=== PATIENT | female | born 1950 | race Caucasian/White ===

== ENCOUNTER 2024-03-22 17:02 | Emergency (ER) | payer MEDICARE, MEDICAID, SELFPAY ==
[2024-03-22] VITALS (8 sets, daily range): BP systolic 182–222; BP diastolic 88–99; PULSE 86–115; RESP 16–33; TEMP 36.7–37.4; O2SAT 92–96; BMI 32.5
--- NOTE | ~2024-03-22 | CT_ITS ---
EXAMINATION: CT ANGIOGRAM HEAD AND NECK WITHOUT AND WITH CONTRAST CLINICAL INFORMATION: RIGHT EYE VISION LOSS FOR DAYS. ELEVATED BLOOD PRESSURE. COMPARISON: NONE TECHNIQUE: CONTIGUOUS AXIAL CT IMAGES WERE OBTAINED FROM THE AORTIC ARCH TO THE VERTEX OF THE HEAD FOLLOWING THE ADMINISTRATION OF 70 ML OF OMNIPAQUE 350 INTRAVENOUS CONTRAST. THE DATA WAS TRANSFERRED TO AN INDEPENDENT WORKSTATION, WHERE 3-D RECONSTRUCTIONS WERE PERFORMED. PRE-AND POSTCONTRAST HEAD CTS WERE ALSO PERFORMED. THE DEGREE OF STENOSIS DETERMINED BY NASCET CRITERIA. THIS CT EXAMINATION WAS PERFORMED USING DOSE OPTIMIZATION TECHNIQUES APPROPRIATE, VARIOUSLY INCLUDING THE FOLLOWING: *AUTOMATED EXPOSURE CONTROL *ADJUSTMENT OF MA AND/OR KV ACCORDING TO PATIENT SIZE (THIS INCLUDES TECHNIQUES OR STANDARDIZED PROTOCOLS FOR TARGETED EXAMS WHERE DOSE IS MATCHED TO INDICATION/REASON FOR EXAM; I.E. EXTREMITIES OR HEAD) *USE OF ITERATIVE RECONSTRUCTION TECHNIQUE DLP: 2196 MGY-CM INTERPRETATION OF FILMS: HEAD CT: There is no intracranial hemorrhage. No evidence of acute/subacute cerebral or cerebellar infarction. There is mild to moderate microvascular ischemic change. There is a chronic lacunar infarction within the posterior right hernandez radiata. There is a chronic lacunar infarction within the left caudate head. There are chronic lacunar infarctions within the basal ganglia bilaterally. No extra-axial fluid collection, mass effect, or midline shift. The ventricles are normal in size and configuration. There is no pathologic enhancement following the intravenous administration of contrast. The orbits are symmetric and within normal limits. There is trace mucosal thickening within the posterior inferior left maxillary sinus. Mastoid air cells are clear. NECK CTA: The visualized aorta is normal in caliber. The origins of the common carotid and vertebral arteries are widely patent. The subclavian arteries are widely patent. The right common carotid artery and cervical bifurcation are normal in caliber. There is minimal calcific atherosclerotic disease at the level of the cervical bifurcation. The cervical segment of the right internal carotid demonstrates smooth luminal margins and is normal in caliber. The left common carotid artery and cervical bifurcation are normal in caliber. There is a minimal calcific atherosclerotic disease at the level of the cervical bifurcation. The cervical segment of the left internal carotid demonstrates smooth luminal margins and is normal in caliber. The right vertebral artery is patent and has a normal course through the cervical region. The left vertebral artery is patent and has a normal course through the cervical region. HEAD CTA: The intracranial right internal carotid artery is normal in caliber. There is an inferiorly projecting 1.8 mm excrescence arising from the communicating segment likely representing a posterior communicating artery infundibulum. The right anterior and middle cerebral arteries are normal in appearance without significant stenosis or major branch vessel occlusion. The intracranial left internal carotid artery is normal in caliber. The left anterior and middle cerebral arteries are normal in appearance without significant stenosis or major branch vessel occlusion. The anterior communicating artery is unremarkable. The intradural vertebral arteries are widely patent and communicate normally with the basilar trunk. The basilar artery and posterior cerebral artery vasculature is normal in appearance. No intracranial aneurysm. No evidence of high flow vascular malformation. OTHER: Lung apices are clear. The thyroid gland contains multiple low attenuation nodules, the largest measuring 1.2 cm in diameter. Further evaluation with thyroid ultrasound is recommended. There is mild to moderate cervical spondylosis. SUMMARY: No acute intracranial abnormality. There is mild to moderate microvascular ischemic change. There is a chronic lacunar infarction within the posterior right hernandez radiata. There is a chronic lacunar infarction within the left caudate head. There are chronic lacunar infarctions within the basal ganglia bilaterally. There is mild calcific atherosclerotic disease at the level of the common carotid artery bifurcations bilaterally. There is no significant internal carotid artery stenosis on either side. No intracranial large vessel occlusion. Electronically signed by: Russell Man DO 03/22/2024 10:58 PM EDT
--- NOTE | 2024-03-22 17:05 | ED_ITS ---
HPI - General Adult General Chief complaint: Eye Problems Stated complaint: no vision in right eye Time Seen by Provider: 03/22/24 17:12 Source: patient and family Mode of arrival: ambulatory Limitations: no limitations History of Present Illness ED Provider: Dr. Mirna Nunes HPI narrative: Patient comes to emergency room accompanied by her family. According to the patient, approximately 8 days ago, patient states that she was on the phone and suddenly noticed that ?the phone was not working . Patient states that the screen looked weird, dark, could not quite focus on the screen. Then, patient noted that if she closed her right eye and looked from the left, the vision was normal. However, she could not see anything out of the right eye. Patient states that she could not only see black out of the eye on the right. Patient states that she has had strokes in the past, last stroke was in 2006 for which she has left-sided residual weakness in upper and lower extremity. Patient states that this time, she did not have any other neurological deficits other than the vision loss in the right eye. Patient went to see today her inside sales director, [facility] with Dr. Shantel Wilkinson. 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 Patient has history of cataract surgery. Recommendation: Come to the emergency room for further evaluation. Outpatient treatment intravitreal anti VEGF injections (Avastin) On arrival, it was noted that patient's blood pressure is 214/98, patient states that she is compliant with her medications, takes amlodipine 10 mg, chlorthalidone 25 mg and lisinopril 40 mg. Patient denies headache, chest pain or shortness of breath Related Data Home Medications ?Medication ?Instructions ?Recorded ?Confirmed amlodipine 10 mg tablet 10 mg PO DAILY 03/22/24 03/22/24 aspirin 81 mg tablet,delayed 81 mg PO DAILY 03/22/24 03/22/24 release chlorthalidone 25 mg tablet 25 mg PO DAILY 03/22/24 03/22/24 lisinopril 40 mg tablet 40 mg PO DAILY 03/22/24 03/22/24 Previous Rx's ?Medication ?Instructions ?Recorded aspirin 81 mg tablet,delayed 81 mg PO DAILY #90 tabs 03/23/24 release atorvastatin 80 mg tablet 80 mg PO DAILY #90 tabs 03/23/24 Allergies Allergy/AdvReac Type Severity Reaction Status Date / Time No Known Allergies Allergy Verified 03/22/24 17:07 [No Known Allergies*] Review of Systems 2 Review of Systems: Constitutional : No Weight loss, No Fever, No Chills, No Night Sweats, No Fatigue, No Malaise ENT/Mouth : No Hearing loss, No Ear Pain, No Nasal Congestion, No Sinus Pain, No Hoarseness, No sore throat, No Rhinorrhea, No Swallowing Difficulty Eyes: No Eye Pain, No Swelling, No Redness, No Foreign Body, No Discharge, complaining of vision loss in the right eye for 8 days Cardiovascular : No Chest Pain, No SOB, No Dyspnea on Exertion, No Orthopnea, No Edema, No Palpitations Respiratory : No Cough, No Sputum, No Wheezing, No Smoke Exposure, No Dyspnea Gastrointestinal : No Nausea, No Vomiting, No Diarrhea, No Constipation, No abdominal Pain, No Hematochezia, No Melena Genitourinary : no irregular bleeding, No Dysuria, No Urinary Frequency, No Hematuria, No Urinary Incontinence, No Urgency, No Flank Pain, No Urinary Flow Changes, No Hesitancy Musculoskeletal : No joint pain, No Myalgias, No Joint Swelling Skin : No Skin Lesions, No rash Neuro : No Weakness, No Numbness, No Paresthesias, No Loss of Consciousness, No Dizziness, No Headache Psych : No Anxiety/Panic, No Depression, No SI/HI/AH/VH, No Social Issues, Heme/Lymph: No Bruising, No Bleeding,No Lymphadenopathy Endocrine : No Polyuria, No Polydipsia, No Temperature Intolerance [facility] Past Medical History Medical History (Updated 03/22/24 @ 23:27 by Mirna Nunes MD) Hyperlipidemia CVA (cerebral vascular accident) Hypertension Social History Social History Smoked in Last 30 Days: No Use of substances other than those prescribed or required for medical reasons: No Advance Directives: No Advance Directives Information Provided: Yes Do you have a plan to hurt others: No Plan Physical Exam ED Vital Signs: Vital Signs - 24 hr 03/22/24 17:06 03/22/24 18:18 03/22/24 18:47 Temperature 98.1 F Pulse Rate 115 H 108 H Respiratory Rate 18 18 Blood Pressure 214/98 H 222/99 H 201/95 H Pulse Oximetry 96 94 Oxygen Delivery Method Room Air Room Air 03/22/24 18:49 03/22/24 18:49 03/22/24 19:58 Temperature Pulse Rate 86 Respiratory Rate 16 Blood Pressure 201/95 H 201/95 H 182/88 H Pulse Oximetry 96 Oxygen Delivery Method Room Air 03/22/24 20:50 03/22/24 22:00 03/22/24 23:26 Temperature 99.1 F 99.3 F Pulse Rate 92 96 97 Respiratory Rate 22 H 33 H Blood Pressure 191/93 H 192/94 H 192/88 H Pulse Oximetry 94 92 Oxygen Delivery Method Room Air Room Air BMI result Body Mass Index 32.5 Const Other: Appearance: Alert. Oriented X3. No acute distress. Eyes: Nonreactive pupil on the right side. Patient states that if she covers her right eye, the vision in the left eye is a normal limits. However, if she covers her left eye and looks out of the right, states that she can see some collar in the peripheral aspects of the vision but has a large central area of seeing completely dark ENT: Pharynx normal. Neck: Normal inspection. Neck supple. No lymph nodes noted. No crepitus CVS: Normal heart rate and rhythm. Pulses normal. Normal S1 and S2 Respiratory: No respiratory distress. Breath sounds normal. No Wheezing. No rales Abdomen: Soft and nontender. No rigidity. No distention. Skin: Skin warm and dry. Normal skin color. Normal skin turgor. Extremities: No lower extremity edema. No Lacerations. No Rash Neuro: Oriented X 3. No motor deficit. No sensory deficit. Moving all extremities. No slurred speech. CN 2 through 12 grossly intact Psych: calm, cooperative, normal affect Course Course Course Narrative: This is a rapid medical exam performed by Layne Gutiérrez NP: Additional HPI, ROS, PE not included below will be deferred to primary provider. Patient is a 73-year-old female with history of cataract surgery 1 year, labs ago presenting from inside sales director's office with complaint of no vision in right eye for a few days. Family took her to inside sales director who performed an exam, told family that patient had evidence of central retinal artery occlusion OD as well as OLD branch retinal vein occlusion with macular edema OS and referred to the ED. Patient hypertensive in triage. Patient denies headache. Plan: CT head Medications Administered Discontinued Medications Generic Name Dose Route Start Last Admin Trade Name Freq PRN Reason Stop Dose Admin Amlodipine Besylate 10 mg 03/22/24 18:35 03/22/24 18:49 Amlodipine Besylate 10 Mg Tablet PO 03/22/24 18:36 10 mg ONCE ONE Administration Protocol Hydrochlorothiazide 25 mg 03/22/24 18:35 03/22/24 18:47 Hydrochlorothiazide 25 Mg Tablet PO 03/22/24 18:36 25 mg ONCE ONE Administration Protocol Iohexol 100 ml 03/22/24 18:18 03/22/24 18:19 Iohexol 350 Mg/Ml 100 Ml Infus..Btl IV 03/22/24 18:19 70 ml ONCE ONE Administration Labetalol HCl 100 mg 03/22/24 23:20 03/22/24 23:26 Labetalol Hcl 100 Mg Tablet PO 03/22/24 23:21 100 mg ONCE ONE Administration Protocol Lisinopril 40 mg 03/22/24 18:35 03/22/24 18:49 Lisinopril 40 Mg Tablet PO 03/22/24 18:36 40 mg ONCE ONE Administration Protocol Potassium Chloride 40 meq 03/22/24 23:16 03/22/24 23:26 Potassium Chloride Packet 20 Meq Packet PO 03/22/24 23:17 40 meq ONCE ONE Administration Medical Decision Making Medical Decision Making MDM Narrative: Unfortunately, patient is outside of the window of treatment for CVA. Patient has been symptomatic for [address] and CTA pending. -patient's blood pressure remains above 200 systolic, last blood pressure check 222/99. Patient admits that she did not take her blood pressure medications despite earlier today saying that she did. Patient was given the 1st dose of hydrochlorothiazide 25 mg (we do not have chlorthalidone available), amlodipine 10 mg and lisinopril 40 mg. -patient's blood pressure in the 190s, patient remains asymptomatic other than the vision loss that started 8 days ago. -patient was given p.o. labetalol 100 mg. -head CT/CTA of head and neck show old lacunar strokes. -I discussed the patient with Dr. Reis from the Medicine team, at this time, no need for admission. All of patient's changes are chronic. The inpatient team would not be doing anything different at this time. -the Patient will be going home with aspirin which she is already taking and atorvastatin -patient's blood pressure 172 systolic after 100 mg p.o. labetalol. Patient has no changes. Differential Diagnosis Differential Diagnoses: The differential diagnosis associated with the presentation includes (TIA, CVA, retina detachment, retinal occlusion) Admission/Observation Consideration of admission/observation: Escalation of care including admission/observation considered (Admission was considered, discussed with our hospitalist Dr. Quispe) Consult Healthcare Provider Management of the patient was discussed with: Hospitalist Lab Data MDM Lab Attestation statement: I reviewed the patient's lab results. 03/22/24 17:20 03/22/24 17:20 Labs: Lab Results 03/22/24 Range/Units 17:20 WBC 8.4 (4.8-10.8) X10*3/uL RBC 4.85 (4.20-5.50) X10*6/uL Hgb 13.7 (12.0-16.0) g/dl Hct 41.1 (37.0-47.0) % MCV 84.7 (80.0-98.0) fL MCH 28.2 (27.0-33.0) pg MCHC 33.3 (31.0-35.0) g/dl RDW 12.9 (11.0-16.0) % Plt Count 266 (160-400) X10*3/uL MPV 11.5 (9.4-12.3) fL Immature Gran % (Auto) 0.2 (0.0-0.4) % Neut % (Auto) 69.9 (45-73) % Lymph % (Auto) 22.6 (20-40) % Haines % (Auto) 5.4 (2-11) % Eos % (Auto) 1.4 (0-4) % Baso % (Auto) 0.5 (0-2) % Lymph # (Auto) 1.9 (1.2-4.9) X10*3/uL Haines # (Auto) 0.5 (0.1-1.2) X10*3/uL Eos # (Auto) 0.1 (0.0-0.4) X10*3/uL Baso # (Auto) 0.0 (0.0-0.2) X10*3/uL Abs Immat Gran (auto) 0.02 (0.00-0.03) X10*3/uL Absolute Neuts (auto) 5.9 (2.0-8.3) x10*3/uL Absolute Nucleated RBC 0.000 (0.0-0.012) X10*3/uL Nucleated RBC % (auto) 0.0 (0.0-0.2) /100WBC PT 11.5 (10.9-12.4) SEC INR 1.0 (0.9-1.1) Sodium 143 (135-145) mmol/L Potassium 3.1 L (3.3-5.1) mmol/L Chloride 109 H (96-108) mmol/L Carbon Dioxide 24 (22-29) mmol/L Anion Gap 13 (12-20) BUN 13 (9-16) mg/dL Creatinine 0.79 (0.5-1.4) mg/dL Estim Creat Clear Calc 63.2 Estimated GFR > 60 Random Glucose 149 H (60-115) mg/dL Calcium 9.7 (8.4-10.2) mg/dL Total Bilirubin 0.4 (0.0-1.0) mg/dL AST 37 H (5-31) U/L ALT 36 H (0-31) U/L Alkaline Phosphatase 120 H (39-117) U/L Total Protein 7.5 (6.5-8.0) g/dL Albumin 4.3 (3.5-5.0) g/dL Independent Interpretation I performed an independent interpretation of an: CT Scan Radiology Impression Discussion of test interpretation with radiology: I have reviewed the radiologist's reading. Radiologist Impression: HEAD CT: There is no intracranial hemorrhage. No evidence of acute/subacute cerebral or cerebellar infarction. There is mild to moderate microvascular ischemic change. There is a chronic lacunar infarction within the posterior right hernandez radiata. There is a chronic lacunar infarction within the left caudate head. There are chronic lacunar infarctions within the basal ganglia bilaterally. No extra-axial fluid collection, mass effect, or midline shift. The ventricles are normal in size and configuration. There is no pathologic enhancement following the intravenous administration of contrast. The orbits are symmetric and within normal limits. There is trace mucosal thickening within the posterior inferior left maxillary sinus. Mastoid air cells are clear. NECK CTA: The visualized aorta is normal in caliber. The origins of the common carotid and vertebral arteries are widely patent. The subclavian arteries are widely patent. The right common carotid artery and cervical bifurcation are normal in caliber. There is minimal calcific atherosclerotic disease at the level of the cervical bifurcation. The cervical segment of the right internal carotid demonstrates smooth luminal margins and is normal in caliber. The left common carotid artery and cervical bifurcation are normal in caliber. There is a minimal calcific atherosclerotic disease at the level of the cervical bifurcation. The cervical segment of the left internal carotid demonstrates smooth luminal margins and is normal in caliber. The right vertebral artery is patent and has a normal course through the cervical region. The left vertebral artery is patent and has a normal course through the cervical region. HEAD CTA: The intracranial right internal carotid artery is normal in caliber. There is an inferiorly projecting 1.8 mm excrescence arising from the communicating segment likely representing a posterior communicating artery infundibulum. The right anterior and middle cerebral arteries are normal in appearance without significant stenosis or major branch vessel occlusion. The intracranial left internal carotid artery is normal in caliber. The left anterior and middle cerebral arteries are normal in appearance without significant stenosis or major branch vessel occlusion. The anterior communicating artery is unremarkable. The intradural vertebral arteries are widely patent and communicate normally with the basilar trunk. The basilar artery and posterior cerebral artery vasculature is normal in appearance. No intracranial aneurysm. No evidence of high flow vascular malformation. OTHER: Lung apices are clear. The thyroid gland contains multiple low attenuation nodules, the largest measuring 1.2 cm in diameter. Further evaluation with thyroid ultrasound is recommended. There is mild to moderate cervical spondylosis. SUMMARY: No acute intracranial abnormality. There is mild to moderate microvascular ischemic change. There is a chronic lacunar infarction within the posterior right hernandez radiata. There is a chronic lacunar infarction within the left caudate head. There are chronic lacunar infarctions within the basal ganglia bilaterally. There is mild calcific atherosclerotic disease at the level of the common carotid artery bifurcations bilaterally. There is no significant internal carotid artery stenosis on either side. No intracranial large vessel occlusion. Critical Care Time Critical Care Time Critical Care Time: Yes Total Critical Care Time: 60 Attestation: I have personally provided critical care time. Time includes review of lab data, radiology results, discussion with consultants, and monitoring for potential decompensation. Intervention performed as documented. Discharge Plan Discharge Clinical Impression: Hypertension, Retinal vascular occlusion Patient Disposition: Home, Self-Care Instructions: Chronic Hypertension (ED), Self Care Measures After a Stroke (ED) Additional Instructions: Please follow-up with your primary care physician tomorrow. If you have any worsening or new symptoms, please return to the emergency room or call 911 Prescriptions: New aspirin 81 mg tablet,delayed release (DR/EC) 81 mg PO DAILY Qty: 90 1RF atorvastatin 80 mg tablet 80 mg PO DAILY Qty: 90 1RF No Action chlorthalidone 25 mg tablet 25 mg PO DAILY aspirin 81 mg tablet,delayed release (DR/EC) 81 mg PO DAILY amlodipine 10 mg tablet 10 mg PO DAILY lisinopril 40 mg tablet 40 mg PO DAILY Print Language: Ug[place]an
[2024-03-22 17:27] LABS: MANUAL DIFF FLAG NO
[2024-03-22 17:31] LABS: Basophils Percent Auto 0.5 % (0-2); Eosinophils Absolute Auto 0.1 X10*3/uL (0.0-0.4); Eosinophils Percent Auto 1.4 % (0-4); Hematocrit 41.1 % (37.0-47.0); Hemoglobin 13.7 g/dl (12.0-16.0); Imm Gran Abs Auto 0.02 X10*3/uL (0.00-0.03); Imm Gran Pct Auto 0.2 % (0.0-0.4); Lymphocytes Absolute Auto 1.9 X10*3/uL (1.2-4.9); Lymphocytes Percent Auto 22.6 % (20-40); Mean Corpuscular HGB Conc 33.3 g/dl (31.0-35.0); Mean Corpuscular Hemoglobin 28.2 pg (27.0-33.0); Mean Corpuscular Volume 84.7 fL (80.0-98.0); Mean Platelet Volume 11.5 fL (9.4-12.3); Monocytes Absolute Auto 0.5 X10*3/uL (0.1-1.2); Monocytes Percent Auto 5.4 % (2-11); Neutrophils Absolute Auto 5.9 x10*3/uL (2.0-8.3); Neutrophils Percent Auto 69.9 % (45-73); Platelet Count 266 X10*3/uL (160-400); Red Blood Count 4.85 X10*6/uL (4.20-5.50); Red Cell Distribution Width 12.9 % (11.0-16.0); White Blood Count 8.4 X10*3/uL (4.8-10.8)
--- NOTE | 2024-03-22 17:35 | PC.NURSE ---
pt a&ox4, hypertensive, sinus tach on monitor, 20G PIV placed left AC, labs obtained, provider at bedside. pt reports vision loss in R eye starting 03/14/24, initially had dark limited vision with improvement over the last week, pt denies headaches, neuro otherwise intact. pt went to ophthalmology appt regarding vision changes and was noted to have retinal artery occlusion per overcoiler and advised to come to the ED. pt pending labs/CT scans. no new orders at this time.
[2024-03-22 17:43] LABS: Prothrombin Time 11.5 SEC (10.9-12.4)
[2024-03-22 17:44] LABS: Alanine Aminotransferase 36 U/L (0-31); Albumin Level 4.3 g/dL (3.5-5.0); Alkaline Phosphatase 120 U/L (39-117); Anion Gap 13 (12-20); Aspartate Amino Transferase 37 U/L (5-31); Bilirubin Total 0.4 mg/dL (0.0-1.0); Blood Urea Nitrogen 13 mg/dL (9-16); Calcium 9.7 mg/dL (8.4-10.2); Carbon Dioxide 24 mmol/L (22-29); Chloride 109 mmol/L (96-108); Creatinine Clr Calc Pharmacy 63.2; Estimated Glomerular Filt Rate > 60; Glucose Random 149 mg/dL (60-115); Potassium 3.1 mmol/L (3.3-5.1); Sodium 143 mmol/L (135-145); Total Protein 7.5 g/dL (6.5-8.0)
--- NOTE | 2024-03-22 18:02 | ECG_ITS ---
Test Reason : RHYTHM CHECK Blood Pressure : / mmHG Vent. Rate : 104 BPM Atrial Rate : 104 BPM P-R Int : 174 ms QRS Dur : 074 ms QT Int : 352 ms P-R-T Axes : 023 010 038 degrees QTc Int : 462 ms Sinus tachycardia Minimal voltage criteria for LVH, may be normal variant ( R in aVL ) Nonspecific T wave abnormality Abnormal ECG No previous ECGs available Referred By: Mirna Nunes Electronically Signed By:RACHNA GOTTLIEB
[2024-03-22] MEDS: iohexoL 350 MG/ML 100 ML INFUS..BTL IV (18:19)
[2024-03-22] MEDS: hydroCHLOROthiazide 25 MG TABLET PO (18:47)
[2024-03-22] MEDS: amLODIPine Besylate 10 MG TABLET PO (18:49)
[2024-03-22] MEDS: lisinopriL 40 MG TABLET PO (18:49)
[2024-03-22] MEDS: Potassium Chloride Packet 20 MEQ PACKET 40 MEQ PO (23:26)
[2024-03-22] MEDS: Labetalol HCL 100 MG TABLET PO (23:26)
--- NOTE | 2024-03-22 23:28 | PC.NURSE ---
pt medicated per mar before discharge, Reviewed discharge instructions with pt. pt verbalized understanding, blood pressure elevated, provider into discuss plan of care and medications.
[2024-03-23 00:28] VITALS: BP 172/92; PULSE 93; RESP 16; TEMP 37.1; O2SAT 96
--- NOTE | 2024-03-23 00:29 | PC.NURSE ---
recheck blood pressure, okay to discharge per Dr. Nunes
== END 2024-03-23 00:34 | disposition home or self-care (01) ==
PROVIDERS: Registered Nurse Emergency; Emergency Provider Emergency Medicine; PCP Physician Assistant Medical
DX: H34.9 Unspecified retinal vascular occlusion (principal); I10 Essential (primary) hypertension; H54.61 Unqualified visual loss, right eye, normal vision left eye; E78.5 Hyperlipidemia, unspecified
CPT/HCPCS: 36415; 70496; 70498; 80053; 85025; 85610; 93005; 99285; Q9967

== ENCOUNTER → 2024-03-22 18:02 | Outpatient (BNV) | payer MEDICARE, MEDICAID, SELFPAY | PROVIDERS: Emergency Provider Emergency Medicine; PCP Physician Assistant Medical; Visit Provider Internal Medicine | DX: R94.31 Abnormal electrocardiogram [ECG] [EKG] (principal) | CPT/HCPCS: 93010 ==